=== PATIENT | male | born 1980 | race Two or more races ===

== ENCOUNTER 2018-04-22 03:24 | Emergency (ER) | payer MEDICAID ==
[~2018-04-22] VITALS: Ht 172.7 cm; Wt 91.0 kg
[2018-04-22] MEDS ORDERED: MORPHINE SULFATE 4 MG/ML CPJ (NOT FOR IM USE) IV STA (03:41)
[2018-04-22] MEDS ORDERED: ONDANSETRON HCL 4MG/2ML INJ IV STA (03:41)
[2018-04-22] MEDS ORDERED: SODIUM CHLORIDE 0.9% 1,000 ML IV ONE (03:41)
[2018-04-22] MEDS ORDERED: HYDRALAZINE 20MG/ML VIAL IV ONE (03:45)
[2018-04-22 04:05] LABS: BASOPHILS % 0.6 % (0.0-2.0); EOSINOPHILS % 5.1 % (0.0-5.0); HEMATOCRIT. 43.9 % (42.0-52.0); HEMOGLOBIN. 14.6 g/dL (14.0-18.0); LYMPHOCYTES % 45.1 % (20.0-50.0); MEAN CORPUSCULAR HEMOGLOBIN 27.8 pg (28.0-32.0); MEAN CORPUSCULAR VOLUME 83.8 fL (80.0-94.0); MEAN PLATELET VOLUME 8.2 fl (7.4-10.4); MONOCYTES % 7.8 % (2.0-8.0); NEUTROPHILS % 41.4 % (40.0-76.0); PLATELET 213 x1000/uL (130-400); RED BLOOD CELL COUNT 5.24 mill/uL (4.7-6.1)
[2018-04-22 04:15] LABS: PARTIAL THROMBOPLASTIN TIME 22.7 sec (23.4-31.0)
[2018-04-22 04:31] LABS: CHLORIDE 107 mEq/L (98-107)
[2018-04-22 04:33] LABS: CLARITY URINE CLEAR (CLEAR); COLOR URINE YELLOW (YELLOW); KETONES URINE NEGATIVE (NEGATIVE); LEUKOCYTE ESTERASE URINE NEGATIVE (NEGATIVE); NITRITE URINE NEGATIVE (NEGATIVE); OCCULT BLOOD URINE NEGATIVE (NEGATIVE); PROTEIN URINE NEGATIVE (NEGATIVE); UROBILINOGEN URINE 0.2 E.U./dL (0.2-1.0)
[2018-04-22] MEDS ORDERED: KCL 10MEQ/50ML PREMIX 50 ML IV ONE (05:00)
[2018-04-22] MEDS ORDERED: MORPHINE SULFATE 4 MG/ML CPJ (NOT FOR IM USE) IV ONE (05:15)
[2018-04-22] MEDS ORDERED: KETOROLAC 30MG/ML VIAL IV ONE (05:45)
[2018-04-22 06:08] VITALS: BP 142/85
[2018-04-22] MEDS ORDERED: IOHEXOL-300 100 ML BOTTLE ONE (07:02)
== END 2018-04-22 06:11 | disposition home or self-care (01) ==
LOC: ER 03:24
DX: N20.0 Calculus of kidney (principal); I10 Essential (primary) hypertension; F17.200 Nicotine dependence, unspecified, uncomplicated
CPT/HCPCS: 36415; 71045; 74177; 80053; 81003; 83690; 84484; 85025; 85610; 85730; 86850; 86900; 86901; 93005; 96361; 96374; 96375; 96376; 99285; J0360; J1885; J2270; J2405; J3480; J7030; Q9967